=== PATIENT | female | born 1960 | race Caucasian/White ===

== ENCOUNTER → 2019-03-29 | Outpatient (CLI) | payer BC ==
[~2019-03-29] MED LIST: ALLEGRA ALLERGY60 MG PO; AMITRIPTYLINE H50 M1 PO; CELEBREX 200MG200 MG PO; FERROUS SU325 MG/TAB PO; FOLIC ACID 40400 MCG PO; LASIX 20MG TABL20 MG PO; NORCO 325 MG-7.1 TAB PO; PRINZIDE 25 MG-1 TAB PO; SAVELLA50 MG PO; VITAMIN C PURE500 M1 PO; XARELTO10 MG PO; ZOCOR 20MG20 MG PO
== END ==
LOC: MC.RAD 09:30
DX: Z12.31 Encounter for screening mammogram for malignant neoplasm of breast (principal)

== ENCOUNTER → 2022-12-14 | Outpatient (CLI) | payer BC | LOC: COL.RAD 15:30 | DX: M47.812 Spondylosis without myelopathy or radiculopathy, cervical region (principal); M17.11 Unilateral primary osteoarthritis, right knee; M47.816 Spondylosis without myelopathy or radiculopathy, lumbar region; M54.2 Cervicalgia ==

== ENCOUNTER → 2023-01-11 | Outpatient (CLI) | payer BC | LOC: MHCPAIN 10:31 | DX: M54.2 Cervicalgia (principal); M50.30 Other cervical disc degeneration, unspecified cervical region; M51.36 Other intervertebral disc degeneration, lumbar region; M54.50 Low back pain, unspecified; M79.671 Pain in right foot; M79.672 Pain in left foot | CPT/HCPCS: G0463 ==

== ENCOUNTER → 2023-10-18 | Outpatient (CLI) | payer BC | LOC: MHCPAIN 10:57 | DX: M54.2 Cervicalgia (principal); M25.512 Pain in left shoulder; M54.50 Low back pain, unspecified; M17.11 Unilateral primary osteoarthritis, right knee; M25.561 Pain in right knee; M79.7 Fibromyalgia | CPT/HCPCS: G0463; J1885 ==

== ENCOUNTER → 2024-01-17 | Outpatient (CLI) | payer BC | LOC: MHCPAIN 11:34 | DX: M17.11 Unilateral primary osteoarthritis, right knee (principal); M79.7 Fibromyalgia; G89.29 Other chronic pain | CPT/HCPCS: G0463 ==

== ENCOUNTER → 2024-06-19 | Outpatient (CLI) | payer BC ==
[~2024-06-19] MED LIST changes: +Ketorolac 30 MG/ML VIAL ONE; +Lidocaine PF 1% (10 MG/ML) 5 ML VIAL ONE
== END ==
LOC: MHCPAIN 14:50
DX: M25.561 Pain in right knee (principal); M17.11 Unilateral primary osteoarthritis, right knee
CPT/HCPCS: J1885